=== PATIENT | male | born 1995 | race Caucasian/White ===

== ENCOUNTER 2021-11-21 21:53 | Emergency (ER) | payer OTHER ==
[2021-11-21] MEDS ORDERED: Lidocaine 1% 5 ML VIAL INJECT ONE (22:16)
[2021-11-22] MEDS ORDERED: ceFAZolin 2 GM in Premix Bag 1 BAG IV SCH (01:00)
[2021-11-22] MEDS ORDERED: ceFAZolin/Dextrose,Iso-Osmotic 2 GM/50 ML Duplex Bag (Premix) IV SCH (01:15)
== END 2021-11-22 02:10 | disposition home or self-care (01) ==
LOC: MW.ED 21:53
DX: M71.9 Bursopathy, unspecified (principal)
CPT/HCPCS: 20605; 87070; 87075; 87205; 89050; 89060; 96365; 99283; J0690; 87077; 87186

== ENCOUNTER 2024-02-09 10:37 | Emergency (ER) | payer BC, OTHER | END 2024-02-09 13:19 | disposition home or self-care (01) | LOC: MW.ED 10:37 | DX: S99.911A Unspecified injury of right ankle, initial encounter (principal); Z75.8 Other problems related to medical facilities and other health care; X50.0XXA Overexertion from strenuous movement or load, initial encounter; Y93.89 Activity, other specified | CPT/HCPCS: 73610-26-RT; 73610-RT; 73630-26-RT; 73630-RT; 99283 ==